=== PATIENT | female | born 1970 | race Caucasian/White ===

== ENCOUNTER 2019-08-20 21:05 | Emergency (ER) | payer BC, OTHER ==
[~2019-08-20] VITALS: Ht 149 cm; Wt 47.7 kg
[2019-08-20] MEDS ORDERED: LACTATED RINGERS 1,000 ML IV ONE (21:42)
[2019-08-20 21:55] LABS: BASOPHILS % (AUTO) 0 % (0-10); EOSINOPHILS % (AUTO) 0 % (0-10); HEMATOCRIT 42 % (35-52); HEMOGLOBIN 14.1 G/DL (11.5-16.0); LYMPHOCYTES # (AUTO) 0.7 X 10^3 (1.0-4.0); LYMPHOCYTES % (AUTO) 9 % (12-44); MEAN CORPUSCULAR HEMOGLOBIN 30 PG (25-34); MEAN CORPUSCULAR HGB CONC 34 G/DL (32-36); MEAN CORPUSCULAR VOLUME 88 FL (80-99); MEAN PLATELET VOLUME 9.6 FL (7.4-10.4); MONOCYTES # (AUTO) 0.1 X 10^3 (0.0-1.0); MONOCYTES % (AUTO) 1 % (0-12); NEUTROPHILS # (AUTO) 6.4 X 10^3 (1.8-7.8); NEUTROPHILS % (AUTO) 89 % (42-75); PLATELET COUNT 238 10^3/uL (130-400); RED CELL DISTRIBUTION WIDTH 13.4 % (10.0-14.5); WHITE BLOOD COUNT 7.2 10^3/uL (4.3-11.0)
[2019-08-20] MEDS ORDERED: ONDANSETRON 4 MG/2 ML (SDV) Z0FRAN IVP ONE (22:00)
[2019-08-20 22:06] LABS: PROTHROMBIN TIME PATIENT 13.4 SEC (12.2-14.7)
[2019-08-20] MEDS ORDERED: fentaNYL INJECTION 100 MCG/2 ML AMP IVP STA ×2 (22:08→22:36)
[2019-08-20 22:12] LABS: BILIRUBIN,URINE NEGATIVE (NEGATIVE); CLARITY,URINE CLEAR; COLOR,URINE YELLOW; GLUCOSE, URINE (UA) NEGATIVE (NEGATIVE); KETONES,URINE TRACE (NEGATIVE); LEUKOCYTE ESTERASE ,URINE NEGATIVE (NEGATIVE); NITRITE,URINE NEGATIVE (NEGATIVE); PH,URINE 5.5 (5-9); PROTEIN,URINE NEGATIVE (NEGATIVE)
[2019-08-20 22:15] LABS: ALBUMIN 4.8 GM/DL (3.2-4.5); CHLORIDE 104 MMOL/L (98-107); POTASSIUM 4.2 MMOL/L (3.6-5.0); SODIUM 140 MMOL/L (135-145)
[2019-08-20 22:17] LABS: AMYLASE 68 U/L (25-125); CALCIUM 9.9 MG/DL (8.5-10.1)
[2019-08-20 22:18] LABS: BAND NEUTROPHILS 10 %; GLUCOSE 121 MG/DL (70-105); NEUTROPHILS % (MANUAL) 77 %; TOTAL PROTEIN 7.6 GM/DL (6.4-8.2)
[2019-08-20 22:19] LABS: BASOPHILS % (MANUAL) 0 %; CARBON DIOXIDE 21 MMOL/L (21-32); EOSINOPHILS % (MANUAL) 0 %; LYMPHOCYTES % (MANUAL) 6 %; MONOCYTES % (MANUAL) 1 %; RBC MORPH NORMAL; REACTIVE LYMPHOCYTES 6 %
[2019-08-20 22:20] LABS: BACTERIA,URINE TRACE /HPF; SQUAMOUS EPITHELIAL CELL,UR RARE /HPF
[2019-08-20 22:20] LABS: BILIRUBIN,TOTAL 0.7 MG/DL (0.1-1.0)
[2019-08-20 22:21] LABS: ALKALINE PHOSPHATASE 42 U/L (40-136); CREATININE SERUM 0.93 MG/DL (0.60-1.30); GFR ESTIMATED > 60
[2019-08-20 22:23] LABS: BUN/CREATININE RATIO 15
[2019-08-20 22:23] LABS: AMPHETAMINE SCREEN, URINE NEGATIVE (NEGATIVE); BARBITURATE SCREEN URINE NEGATIVE (NEGATIVE); BENZODIAZEPINES SCREEN URINE NEGATIVE (NEGATIVE); CANNABINOID SCREEN, URINE NEGATIVE (NEGATIVE); COCAINE SCREEN URINE NEGATIVE (NEGATIVE); METHADONE STAT NEGATIVE (NEGATIVE); METHAMPHETAMINE SCREEN URINE S NEGATIVE (NEGATIVE); OPIATE SCREEN URINE NEGATIVE (NEGATIVE); OXYCODONE STAT NEGATIVE (NEGATIVE); PROPOXYPHENE STAT NEGATIVE (NEGATIVE); TRICYCLIC ANTIDEPRESSANTS SCRE NEGATIVE (NEGATIVE)
[2019-08-20 22:24] LABS: ALANINE AMINOTRANSFERASE 12 U/L (0-55); MAGNESIUM 1.8 MG/DL (1.6-2.4)
[2019-08-20 22:26] LABS: LIPASE 12 U/L (8-78)
[2019-08-20] MEDS ORDERED: NS 100 ML (IVPB) BAG IV ONE (22:45)
[2019-08-20] MEDS ORDERED: HOLD METFORMIN - RECEIVED CONTRAST 20 ML VIAL IV SCH (22:45)
[2019-08-20] MEDS ORDERED: IOHEXOL 350 MG/ML 100 ML (OMNIPAQUE 350) VIAL IV ONE (22:45)
[2019-08-20] MEDS ORDERED: morphine INJ 10 MG/ML 1ML (SYR OR VIAL) IVP ONE (23:45)
[2019-08-21] MEDS ORDERED: ONDANSETRON 4 MG/2 ML (SDV) Z0FRAN IVP ONE
--- NOTE | 2019-08-21 00:02 | NUR ---
Obtained consent for transfer to [facility] at this time.
--- NOTE | 2019-08-21 00:22 | NUR ---
Report called to DAFNE Arias at this time.
[2019-08-21 01:02] VITALS: BP 113/85
--- NOTE | 2019-08-21 10:27 | Diagnostic Imaging Report ---
PROCEDURE: CT abdomen and pelvis with contrast. TECHNIQUE: Multiple contiguous axial images were obtained through the abdomen and pelvis after administration of intravenous contrast. Auto Exposure Controls were utilized during the CT exam to meet ALARA standards for radiation dose reduction. INDICATION: Postcoital suprapubic pain. Patient reports this is the 1st time having intercourse since hysterectomy in May. COMPARISON: None available. FINDINGS: There is mild dependent atelectasis in both lower lobes. Visualized heart is normal in size. Partially visualized bilateral breast implants are demonstrated. The liver, spleen, gallbladder, pancreas and adrenal glands are unremarkable. The common bile duct is top normal in size, measuring 6 mm in diameter. There is no pancreatic ductal dilatation. The kidneys are symmetric in size and demonstrate normal enhancement, without renal calculus, hydronephrosis, or suspicious renal mass. There are scattered foci of pneumoperitoneum in the upper abdomen. Suggestion of circumferential thickening involving the pylorus, which is not as well-seen on delayed imaging and likely secondary to underdistention. There is suggestion of wall thickening involving the ascending colon, which is not well-distended. There is mild surrounding inflammatory change adjacent to the ascending colon. No bowel wall thickening is noted elsewhere. There is no evidence of obstruction. There is moderate retained stool noted throughout the colon, with relative sparing of the ascending colon. A gas-filled tubular structure in the right lower quadrant is believed to be the appendix and does not appear enlarged. There is trace pelvic free fluid. No focal/loculated rim-enhancing collection is demonstrated in the abdomen or pelvis. No lymphadenopathy is identified. The aorta is nonaneurysmal. There is no evidence of venous thrombosis. Incidental note is made of a retroaortic left renal vein, a normal anatomic variant. The bladder is normal. The uterus is surgically absent. The abdominal wall is unremarkable. No acute osseous abnormality is identified. IMPRESSION: Scattered foci of pneumoperitoneum are demonstrated in the upper abdomen. This finding is of uncertain etiology or clinical significance. Although the patient reports recent hysterectomy, residual pneumoperitoneum related to that procedure, reportedly performed in May, would not be expected. A perforated gastric or duodenal ulcer is a possible explanation for the pneumoperitoneum, in the proper clinical setting. Circumferential pyloric thickening was demonstrated on initial imaging but may have been secondary to underdistention as it was not reproduced on delayed imaging. Bowel perforation is also a consideration for the cause of pneumoperitoneum, however, there is no definite defect noted in the bowel. There is apparent thickening and inflammatory change involving the ascending colon, which possibly reflects acute infectious/inflammatory colitis. There is trace pelvic free fluid, however, there is no organized/loculated rim-enhancing collection noted in the abdomen or pelvis. Aside from the ascending colon, there is moderate stool burden, with retained fecal matter throughout much of the colon. Findings are in agreement with initial teleradiology report. Dictated by: Dictated on workstation # [id number]
--- NOTE | 2019-08-29 17:45 | ED Abdominal Pain ---
General Chief Complaint: Abdominal/GI Problems Stated Complaint: ABD PAIN Nursing Triage Note: Pt to RM 5 via WC with c/o suprapubic pain after having sexual intercourse for the first time after having hysterectomy in May. Sepsis Screen: No Definite Risk Source of Information: Patient History of Present Illness Date Seen by Provider: Aug 20, 2019 Time Seen by Provider: 21:32 Initial Comments PT ARRIVES VIA POV FROM HOME PT STATES SHE HAD A TOTAL HYSTERECTOMY IN MAY IN [facility] SHE HAD SEX FOR THE FIRST TIME TONIGHT AND STATES "SOMETHING TORE"- B ECAUSE I'M BLEEDING"--2 HOURS AGO ON ARRIVAL, PT IS SCREAMING HYSTERICALLY, THRASHING ALL OVER, YELLING AND MAKING A MULTITUDE OF DEMANDS EVEN BEFORE SHE GETS TO THE ROOM SCREAMING "I NEED SOMETHING FOR PAIN" "I'M BLEEDING INTERNALLY" "I NEED BLANKETS" , AMONG A MULTITUDE OF OTHER THINGS HAS NOT TAKEN ANYTHING FOR PAIN C/O NAUSEA, NO VOMITING LAST BM WAS THIS AFTERNOON AND WAS NORMAL. NO URINARY SYMPTOMS NO VAGINAL BLEEDING OR DISCHARGE PRIOR TO INTERCOURSE TONIGHT STATES SHE IS "ONLY HERE FOR PAIN MEDICINE" AND INITIALLY WOULD NOT ALLOW IV, LAB OR AN EXAM--JUST STATES SHE WANTS PAIN MEDICINE AND WANTS TO BE TRANSFERRED PT HAD CONTACTED THE [employer] SURGEON [employer] TURRET LATHE OPERATOR, WHO ADVISED HER TO GO TO [facility] ER, BUT PT CAME HERE INSTEAD. PCP: NONE Allergies and Home Medications Allergies Coded Allergies: No Known Drug Allergies (Unverified , 08/20/19) Patient Home Medication List Home Medication List Reviewed: Yes Review of Systems Review of Systems Constitutional: no symptoms reported; No chills, No diaphoresis, No fever Respiratory: No Symptoms Reported; Denies Cough, Denies Shortness of Air Cardiovascular: No Symptoms Reported; Denies Chest Pain Gastrointestinal: See HPI, Abdominal Pain; Denies Constipated, Denies Diarrhea; Nausea; Denies Rectal Bleeding, Denies Vomiting Genitourinary: See HPI; Denies Discharge, Denies Flank Pain, Denies Hematuria, Denies Incontinence, Denies Pain, Denies Urgency Musculoskeletal: no symptoms reported; No back pain Skin: no symptoms reported Psychiatric/Neurological: See HPI Endocrine: No Symptoms Reported Hematologic/Lymphatic: No Symptoms Reported Past Pufcdrn-[id number]-[id number] Hx Past Med/Social Hx: Reviewed and Corrections made Patient Social History Alcohol Use: Occasionally Uses Recreational Drug Use: No Smoking Status: Never a Smoker 2nd Hand Smoke Exposure: No Recent Foreign Travel: No Contact w/Someone Who Travel: No Recent Infectious Disease Expo: No Recent Hopitalizations: No Seasonal Allergies Seasonal Allergies: No Past Medical History Surgeries: Yes (HYST/BSO 05/2019; BREAST IMPLANTS) Breast, Hysterectomy, Oophorectomy Respiratory: No Cardiac: Yes Hypertension Neurological: No Reproductive Disorders: Yes Female Reproductive Disorders: Menstrual Problems [employer] History: Hysterectomy Genitourinary: No Gastrointestinal: No Musculoskeletal: No Endocrine: No HEENT: No Cancer: No Psychosocial: No Integumentary: No Blood Disorders: No Physical Exam Vital Signs Capillary Refill : Less Than 3 Seconds Height/Weight/BMI Height: '" Weight: lbs. oz. kg; 21.00 BMI Method: General Appearance: other (PT WITH BEHAVIOR ABOVE--SCREAMING, YELLING, COMPLETELY HYSTERICAL, THRASHING ALL OVER) Respiratory: normal breath sounds, no respiratory distress, no accessory muscle use Cardiovascular: regular rate, rhythm, no murmur Gastrointestinal: other (WILL NOT ALLOW ME TO EXAMINE HER ABDOMEN AT ALL ) Genital/Rectal: other (INTROITUS NORMAL; VAGINAL CANAL WITHOUT ANY BLOOD OR DISCHARGE. VAGINAL CUFF WITH 1/2 X 2 CM AREA OF MID DEHISCENCE WITH SCANT AMOUNT OF CLOTTED BLOOD AT THE SITE. NO BLEEDING. NO PROTRUDING OF ABDOMINAL CONTENTS. ) Extremities: normal inspection Back: no CVA tenderness Neurologic/Psychiatric: bulk pigment reducer II-XII nml as tested, no motor/sensory deficits, alert, oriented x 3 Skin: normal color, warm/dry Focused Exam Lactate Level 08/20/19 22:00: Lactic Acid Level 1.32 Lactic Acid Level Laboratory Tests Test 08/20/19 22:00 Lactic Acid Level 1.32 MMOL/L (0.50-2.00) Progress/Results/Core Measures Results/Orders Lab Results Laboratory Tests Test 08/20/19 21:46 08/20/19 22:00 08/20/19 22:03 Range/Units White Blood Count 7.2 4.3-11.0 10^3/uL Red Blood Count 4.75 4.35-5.85 10^6/uL Hemoglobin 14.1 11.5-16.0 G/DL Hematocrit 42 35-52 % Mean Corpuscular Volume 88 80-99 FL Mean Corpuscular Hemoglobin 30 25-34 PG Mean Corpuscular Hemoglobin Concent 34 32-36 G/DL Red Cell Distribution Width 13.4 10.0-14.5 % Platelet Count 238 130-400 10^3/uL Mean Platelet Volume 9.6 7.4-10.4 FL Neutrophils (%) (Auto) 89 H 42-75 % Lymphocytes (%) (Auto) 9 L 12-44 % Monocytes (%) (Auto) 1 0-12 % Eosinophils (%) (Auto) 0 0-10 % Basophils (%) (Auto) 0 0-10 % Neutrophils # (Auto) 6.4 1.8-7.8 X 10^3 Lymphocytes # (Auto) 0.7 L 1.0-4.0 X 10^3 Monocytes # (Auto) 0.1 0.0-1.0 X 10^3 Eosinophils # (Auto) 0.0 0.0-0.3 10^3/uL Basophils # (Auto) 0.0 0.0-0.1 10^3/uL Neutrophils % (Manual) 77 % Lymphocytes % (Manual) 6 % Monocytes % (Manual) 1 % Eosinophils % (Manual) 0 % Basophils % (Manual) 0 % Band Neutrophils 10 % Reactive Lymphocytes 6 % Blood Morphology Comment NORMAL Prothrombin Time 13.4 12.2-14.7 SEC INR Comment 1.0 0.8-1.4 Activated Partial Thromboplast Time 20 L 24-35 SEC Sodium Level 140 135-145 MMOL/L Potassium Level 4.2 3.6-5.0 MMOL/L Chloride Level 104 98-107 MMOL/L Carbon Dioxide Level 21 21-32 MMOL/L Anion Gap 15 H 5-14 MMOL/L Blood Urea Nitrogen 14 7-18 MG/DL Creatinine 0.93 0.60-1.30 MG/DL Estimat Glomerular Filtration Rate > 60 BUN/Creatinine Ratio 15 Glucose Level 121 H 70-105 MG/DL Calcium Level 9.9 8.5-10.1 MG/DL Corrected Calcium 8.5-10.1 MG/DL Magnesium Level 1.8 1.6-2.4 MG/DL Total Bilirubin 0.7 0.1-1.0 MG/DL Aspartate Amino Transf (AST/SGOT) 19 5-34 U/L Alanine Aminotransferase (ALT/SGPT) 12 0-55 U/L Alkaline Phosphatase 42 40-136 U/L Total Protein 7.6 6.4-8.2 GM/DL Albumin 4.8 H 3.2-4.5 GM/DL Amylase Level 68 25-125 U/L Lipase 12 8-78 U/L Procalcitonin 0.08 <0.10 NG/ML Serum Alcohol < 10 <10 MG/DL Lactic Acid Level 1.32 0.50-2.00 MMOL/L Urine Color YELLOW Urine Clarity CLEAR Urine pH 5.5 5-9 Urine Specific [place] 1.010 L 1.016-1.022 Urine Protein NEGATIVE NEGATIVE Urine Glucose (UA) NEGATIVE NEGATIVE Urine Ketones TRACE H NEGATIVE Urine Nitrite NEGATIVE NEGATIVE Urine Bilirubin NEGATIVE NEGATIVE Urine Urobilinogen 0.2 < = 1.0 MG/DL Urine Leukocyte Esterase NEGATIVE NEGATIVE Urine RBC (Auto) 2+ H NEGATIVE Urine RBC 5-10 H /HPF Urine WBC NONE /HPF Urine Squamous Epithelial Cells RARE /HPF Urine Crystals NONE /LPF Urine Bacteria TRACE /HPF Urine Casts NONE /LPF Urine Mucus NEGATIVE /LPF Urine Culture Indicated NO Urine Opiates Screen NEGATIVE NEGATIVE Urine Oxycodone Screen NEGATIVE NEGATIVE Urine Methadone Screen NEGATIVE NEGATIVE Urine Propoxyphene Screen NEGATIVE NEGATIVE Urine Barbiturates Screen NEGATIVE NEGATIVE Ur Tricyclic Antidepressants Screen NEGATIVE NEGATIVE Urine Phencyclidine Screen NEGATIVE NEGATIVE Urine Amphetamines Screen NEGATIVE NEGATIVE Urine Methamphetamines Screen NEGATIVE NEGATIVE Urine Benzodiazepines Screen NEGATIVE NEGATIVE Urine Cocaine Screen NEGATIVE NEGATIVE Urine Cannabinoids Screen NEGATIVE NEGATIVE Micro Results Microbiology 08/20/19 Blood Culture - Final, Complete No growth 08/20/19 Blood Culture - Final, Complete No growth My Orders Orders - DIANA STONE DO Ed Iv/Invasive Line Start (08/20/19 21:42) Monitor-Rhythm Ecg Trace Only (08/20/19 21:42) Alcohol (08/20/19 21:42) Amylase (08/20/19 21:42) Cbc With Automated Diff (08/20/19 21:42) Comprehensive Metabolic Panel (08/20/19 21:42) Lactic Acid Analyzer (08/20/19 21:42) Lipase (08/20/19 21:42) Magnesium (08/20/19 21:42) Procalcitonin (Pct) (08/20/19 21:42) Protime With Inr (08/20/19 21:42) Partial Thromboplastin Time (08/20/19 21:42) Ua Culture If Indicated (08/20/19 21:42) Blood Culture (08/20/19 21:42) Ed Iv/Invasive Line Start (08/20/19 21:42) Lactated Ringers (Lr 1000 Ml Iv Solution (08/20/19 21:42) Drug Screen Stat (Urine) (08/20/19 21:42) Ondansetron Injection (Zofran Injectio (08/20/19 22:00) Manual Differential (08/20/19 21:46) Ct Abdomen/Pelvis W (08/20/19 22:07) Fentanyl Injection (Sublimaze Injection (08/20/19 22:08) Fentanyl Injection (Sublimaze Injection (08/20/19 22:36) Iohexol Injection (Omnipaque 350 Mg/Ml 1 (08/20/19 22:45) Received Contrast (Hold Metformin- Contr (08/20/19 22:45) Ns (Ivpb) (Sodium Chloride 0.9% Ivpb Bag (08/20/19 22:45) Morphine Injection (Morphine Injection (08/20/19 23:45) Ondansetron Injection (Zofran Injectio (08/21/19 00:00) Iv Push [employer] Officer Ed (08/20/19 ) Blood Pressure Mean: 124 Progress Progress Note : Progress Note NO ULTRASOUND AVAILABLE AT THIS TIME NO VAGINAL BLEEDING AT ANY TIME DURING ER STAY GIVEN FENTANYL WITHOUT RELIEF, GIVEN MORPHINE WITH SOME RELIEF. Diagnostic Imaging Comments CT ABDOMEN/PELVIS--TINY AMOUNT OF FREE AIR NEAR IVC--RADIOLOGIST STATES "BARELY VISIBLE". NO FREE FLUID IN ABDOMEN OR PELVIS; VERY LARGE AMOUNT OF STOOL IN COLON. PER [facility] RADIOLOGIST VIA PHONE AT 2330 AND VIA FAX AT [phone] Reviewed: Reviewed by Me, Discussed w/Radiologist Departure Communication (Admissions) 2144--CALLED DR. DEL REAL, [employer] TURRET LATHE OPERATOR --MESSAGE LEFT ON CELL 2145--CALLED DR. DEL REAL'S ANSWERING SERVICE 2149--SPOKE WITH DR. SAMIA DEL REAL, [employer] TURRET LATHE OPERATOR [employer]. HE DOES NOT KNOW THE PATIENT, BUT HAD ADVISED HER TO COME TO [facility] ER, BUT PT CAME HERE INSTEAD. WILL CALL HIM BACK WITH CT RESULTS. 2332--CALLED DR. DEL REAL, MESSAGE LEFT WITH STAFF HE IS IN A DELIVERY AT THIS TIME 2340--DR. DEL REAL CALLED BACK. REVIEWED CT FINDINGS. HE ADVISES TO SEND PT TO [facility] ER AND HE WILL SEE HER THERE. 2346--CALLED [facility] ER 2351--SPOKE WITH DR. RAUSCH, ER PHYSICIAN. ACCEPTS PT FOR TRANSFER. 49--EMS HERE FOR TRANSPORT Impression Primary Impression: Vaginal cuff dehiscence Additional Impressions: S/P hysterectomy with oophorectomy TRACE FREE AIR IN ABDOMEN Disposition: XFER SHT-TRM HOSP Condition: Stable Transfer Transfer Reason: Patient preference Transfer Facility: [facility] Method of Transfer: EMS Departure-Patient Inst. Referrals: NO,LOCAL PHYSICIAN (PCP) Primary Care Physician DIANA STONE DO Aug 29, 2019 17:45
== END 2019-08-21 01:02 | disposition short-term general hospital (02) ==
LOC: ER 21:07
DX: T81.31XA Disruption of external operation (surgical) wound, not elsewhere classified, initial encounter (principal); R14.0 Abdominal distension (gaseous); Z90.710 Acquired absence of both cervix and uterus; Z90.722 Acquired absence of ovaries, bilateral
CPT/HCPCS: 74177; 80053; 80306; 81000; 82150; 83605; 83690; 83735; 84145; 85007; 85027; 85610; 85730; 87040; 93041; 96361; 96374; 96375; 96376; 99284; G0480; 36415; 80320